=== PATIENT | female | born 1985 | race Caucasian/White ===

== ENCOUNTER 2017-04-01 13:09 | Emergency (ER) | payer MEDICAID ==
[~2017-04-01] VITALS: Ht 170.2 cm; Wt 85.1 kg
[~2017-04-01 13:09] MED LIST: NONE PER PT
[2017-04-01 13:30] VITALS: BP 117/74
== END 2017-04-01 14:14 | disposition home or self-care (01) ==
LOC: ED 14:08
DX: K02.9 Dental caries, unspecified (principal)
CPT/HCPCS: 99283